=== PATIENT | female | born 1945 | race Caucasian/White ===

== ENCOUNTER 2018-03-29 12:16 | Inpatient (IN) | payer MEDICARE, OTHER ==
[2018-03-29] MEDS ORDERED: DILTIAZEM DRIP BOLUS FROM BAG 1 MG SOLN IV ONE (12:29)
[2018-03-29] MEDS ORDERED: IPRATROPIUM-ALBUTEROL 3 ML NEB INHALATION STA (12:29)
--- NOTE | 2018-03-29 12:30 | ED ---
Weakness HPI - General Stated complaint: SOB Time Seen by Provider: 03/29/18 12:18 Source: RN notes reviewed, old records reviewed, Caregiver Mode of arrival: EMS Limitations: altered mental status - History of Present Illness Initial comments: This is a 73-year-old female the ER for evasive significant shortness of breath weakness, not feeling well. Patient denies fevers denies chest pain. A she is a poor historian history. From EMS and patient's chart MD Complaint: generalized weakness -: days(s) Location: generalized Severity: moderate Severity scale (1-10): 7 Consistency: constant Improves with: rest, medication Worsens with: movement Associated Symptoms: syncope - Related Data Home Medications Medication Instructions Recorded Confirmed ALPRAZolam [Xanax] 0.25 mg PO BID@0800,1600 08/17/15 03/29/18 Clopidogrel [Plavix] 75 mg PO DAILY 08/17/15 03/29/18 Magnesium Hydroxide [Milk of 30 ml PO DAILY PRN 08/17/15 03/29/18 Magnesia] Menthol [Biofreeze] 1 applic TOPICAL DAILY PRN 08/17/15 03/29/18 Metoprolol Succinate (ER) [Toprol 100 mg PO DAILY 08/17/15 03/29/18 Xl] Carboxymethylcellulose Sodium 1 drop BOTH EYES TID@0800,1200,1800 03/29/1803/29 [Refresh Tears] Diltiazem HCl [Cardizem LA] 180 mg PO DAILY 03/29/18 03/29/18 HYDROcodone/APAP 10-325MG [[place] 1 tab PO Q4H 03/29/18 03/29/18 10-325] Insulin Aspart [NovoLOG] 35 unit SQ AC-TID 03/29/18 03/29/18 Insulin Aspart [NovoLOG] See Protocol SQ DIRECTED 03/29/18 03/29/18 Insulin Glargine,Hum.rec.anlog 50 unit SQ BID@0800,1600 03/29/18 03/29/18 [Basaglar Krzysztofikpen U-100] Ipratropium-Albuterol Nebulize 3 ml INHALATION RT-QID 03/29/18 03/29/18 [Duoneb 0.5 mg-3 mg/3 ml Soln] Ketoconazole [Ketoconazole 2%] 1 applic TOPICAL DAILY 03/29/18 03/29/18 Lidocaine [Lidocaine 3% Topical 1 applic TOPICAL DAILY 03/29/18 03/29/18 Cream] Melatonin 5 mg PO HS 03/29/18 03/29/18 Menthol [Biofreeze] 1 dose TOPICAL Q8HR PRN MDD BOTH 03/29/18 03/29/18 KNEES Nitroglycerin Sl Tabs [Nitrostat] 0.4 mg SL Q5M 03/29/18 03/29/18 QUEtiapine [SEROquel] 100 mg PO TID@0800,1200,2100 03/29/18 03/29/18 Sodium Bicarbonate 650 mg PO BID@0800,1600 03/29/18 03/29/18 cycloSPORINE 0.05% OPHTH SOLN 1 drop BOTH EYES BID 03/29/18 03/29/18 [Restasis] guaiFENesin SYRUP 100MG/5ML 5 ml PO Q6HR PRN 03/29/18 03/29/18 [Robitussin] metFORMIN HCL 1,000 mg PO BID@0800,1600 03/29/18 03/29/18 Allergies Allergy/AdvReac Type Severity Reaction Status Date / Time baclofen Allergy Unknown Verified 03/29/18 14:12 morphine Allergy Unknown Verified 03/29/18 14:12 Review of Systems ROS Statement: Those systems with pertinent positive or pertinent negative responses have been documented in the HPI. ROS Other: All systems not noted in ROS Statement are negative. Past Medical History Past Medical History: Diabetes Mellitus, Eye Disorder, Hyperlipidemia, Hypertension Additional Past Medical History / Comment(s): wheelchair dependent History of Any Multi-Drug Resistant Organisms: None Reported Past Surgical History: Unable to Obtain Past Anesthesia/Blood Transfusion Reactions: Unable to Obtain Smoking Status: Current every day smoker - Past Family History Mother Family Medical History: Unable to Obtain General Exam General appearance: alert, anxious, in distress Head exam: Present: atraumatic, normocephalic, normal inspection Eye exam: Present: normal appearance, PERRL, EOMI. Absent: scleral icterus, conjunctival injection, periorbital swelling ENT exam: Present: normal exam, mucous membranes moist Neck exam: Present: normal inspection. Absent: tenderness, meningismus, lymphadenopathy Respiratory exam: Present: respiratory distress, wheezes, rales, accessory muscle use, decreased breath sounds, prolonged expiratory. Absent: rhonchi, stridor Cardiovascular Exam: Present: tachycardia, irregular rhythm, normal heart sounds. Absent: systolic murmur, diastolic murmur, rubs, gallop, clicks GI/Abdominal exam: Present: soft, normal bowel sounds. Absent: distended, tenderness, guarding, rebound, rigid Extremities exam: Present: normal inspection, full ROM, normal capillary refill. Absent: tenderness, pedal edema, joint swelling, calf tenderness Back exam: Present: normal inspection Neurological exam: Present: alert, oriented X3, CN II-XII intact Psychiatric exam: Present: normal affect, normal mood Skin exam: Present: warm, dry, intact, normal color. Absent: rash Course Vital Signs 03/29/18 03/29/18 03/29/18 12:30 12:45 13:00 Temperature 97.7 F Pulse Rate 101 H 96 108 H Respiratory 22 20 19 Rate Blood Pressure 139/75 147/85 143/127 O2 Sat by Pulse 93 L 93 L Oximetry 03/29/18 03/29/18 03/29/18 13:08 13:15 13:26 Temperature Pulse Rate 113 H 107 H 114 H Respiratory 22 Rate Blood Pressure 142/75 O2 Sat by Pulse 96 Oximetry 03/29/18 03/29/18 03/29/18 13:30 13:36 13:45 Temperature Pulse Rate 101 H 100 103 H Respiratory 17 18 21 Rate Blood Pressure 141/78 136/75 136/75 O2 Sat by Pulse 95 92 L 93 L Oximetry 03/29/18 03/29/18 03/29/18 14:30 14:45 14:50 Temperature Pulse Rate 85 78 75 Respiratory 21 18 18 Rate Blood Pressure 145/76 149/96 151/81 O2 Sat by Pulse 94 L 93 L 95 Oximetry 03/29/18 03/29/18 03/29/18 15:00 15:15 15:30 Temperature 98.8 F Pulse Rate 85 90 88 Respiratory 27 H 19 Rate Blood Pressure 151/81 155/83 155/83 O2 Sat by Pulse 91 L 95 94 L Oximetry - Reevaluation(s) Reevaluation #1: Clinical record is reviewed Patient does have improvement after diuresis and prolonged breathing treatment EKG Findings - EKG Comments: EKG Findings:: EKG shows a flutter rate of 110, QRS 88, QTC 397 Medical Decision Making - Medical Decision Making 73 female the ER for evasive severe shortness of breath, patient will be admitted for hypoxia CHF and COPD - Lab Data Result diagrams: 03/30/18 05:50 03/30/18 05:50 Lab Results 03/29/18 03/29/18 03/29/18 Range/Units 13:14 13:14 13:14 WBC 6.9 (3.8-10.6) k/uL RBC 3.47 L (3.80-5.40) m/uL Hgb 10.0 L (11.4-16.0) gm/dL Hct 32.2 L (34.0-46.0) % MCV 92.7 (80.0-100.0) fL MCH 28.8 (25.0-35.0) pg MCHC 31.1 (31.0-37.0) g/dL RDW 15.8 H (11.5-15.5) % Plt Count 198 (150-450) k/uL Neutrophils % 72 % Lymphocytes % 15 % Monocytes % 5 % Eosinophils % 5 % Basophils % 1 % Neutrophils # 5.0 (1.3-7.7) k/uL Lymphocytes # 1.1 (1.0-4.8) k/uL Monocytes # 0.4 (0-1.0) k/uL Eosinophils # 0.4 (0-0.7) k/uL Basophils # 0.0 (0-0.2) k/uL Hypochromasia Slight PT (9.0-12.0) sec INR (<1.2) APTT (22.0-30.0) sec Sodium 143 (137-145) mmol/L Potassium 4.5 (3.5-5.1) mmol/L Chloride 115 H (98-107) mmol/L Carbon Dioxide 18 L (22-30) mmol/L Anion Gap 10 mmol/L BUN 58 H (7-17) mg/dL Creatinine 4.24 H (0.52-1.04) mg/dL Est GFR (CKD-EPI)AfAm 11 (>60 ml/min/1.73 sqM) Est GFR (CKD-EPI)NonAf 10 (>60 ml/min/1.73 sqM) Glucose 206 H (74-99) mg/dL Estimated Ave Glu mg/dL Hemoglobin A1c (4.0-6.0) % Calcium 9.9 (8.4-10.2) mg/dL Magnesium 1.7 (1.6-2.3) mg/dL Total Bilirubin 0.4 (0.2-1.3) mg/dL AST 21 (14-36) U/L ALT 26 (9-52) U/L Alkaline Phosphatase 75 (38-126) U/L Total Creatine Kinase 38 (30-135) U/L CK-MB (CK-2) 1.6 (0.0-2.4) ng/mL CK-MB (CK-2) Rel Index 4.2 Troponin I 0.073 H* (0.000-0.034) ng/mL NT-Pro-B Natriuret Pep pg/mL Total Protein 5.8 L (6.3-8.2) g/dL Albumin 3.0 L (3.5-5.0) g/dL 03/29/18 03/29/18 03/29/18 Range/Units 13:14 13:14 13:14 WBC (3.8-10.6) k/uL RBC (3.80-5.40) m/uL Hgb (11.4-16.0) gm/dL Hct (34.0-46.0) % MCV (80.0-100.0) fL MCH (25.0-35.0) pg MCHC (31.0-37.0) g/dL RDW (11.5-15.5) % Plt Count (150-450) k/uL Neutrophils % % Lymphocytes % % Monocytes % % Eosinophils % % Basophils % % Neutrophils # (1.3-7.7) k/uL Lymphocytes # (1.0-4.8) k/uL Monocytes # (0-1.0) k/uL Eosinophils # (0-0.7) k/uL Basophils # (0-0.2) k/uL Hypochromasia PT 11.3 (9.0-12.0) sec INR 1.2 H (<1.2) APTT 23.2 (22.0-30.0) sec Sodium (137-145) mmol/L Potassium (3.5-5.1) mmol/L Chloride (98-107) mmol/L Carbon Dioxide (22-30) mmol/L Anion Gap mmol/L BUN (7-17) mg/dL Creatinine (0.52-1.04) mg/dL Est GFR (CKD-EPI)AfAm (>60 ml/min/1.73 sqM) Est GFR (CKD-EPI)NonAf (>60 ml/min/1.73 sqM) Glucose (74-99) mg/dL Estimated Ave Glu mg/dL 117 Hemoglobin A1c 5.7 (4.0-6.0) % Calcium (8.4-10.2) mg/dL Magnesium (1.6-2.3) mg/dL Total Bilirubin (0.2-1.3) mg/dL AST (14-36) U/L ALT (9-52) U/L Alkaline Phosphatase (38-126) U/L Total Creatine Kinase (30-135) U/L CK-MB (CK-2) (0.0-2.4) ng/mL CK-MB (CK-2) Rel Index Troponin I (0.000-0.034) ng/mL NT-Pro-B Natriuret Pep 25285 pg/mL Total Protein (6.3-8.2) g/dL Albumin (3.5-5.0) g/dL - Radiology Data Radiology results: report reviewed (Chest x-ray positive for CHF), image reviewed Critical Care Time Critical Care Time: Yes Total Critical Care Time: 31 Disposition Clinical Impression: Acute pulmonary edema, Acute exacerbation of chronic obstructive airways disease, Congestive heart failure Disposition: ADMITTED IP TO THIS [facility] Condition: Serious Is patient prescribed a controlled substance at d/c from ED?: No
[2018-03-29] MEDS: DILTIAZEM 50 MG in SODIUM CHLORIDE 0.9% 40 ML IV SCH ×2 (13:24→22:24)
[2018-03-29 13:37] LABS: Basophils % (A) 1 %; Eosinophils # (A) 0.4 k/uL (0-0.7); Eosinophils % (A) 5 %; HCT 32.2 % (34.0-46.0); Hypochromasia Slight; Lymphocytes # (A) 1.1 k/uL (1.0-4.8); Lymphocytes % (A) 15 %; MCH 28.8 pg (25.0-35.0); MCHC 31.1 g/dL (31.0-37.0); MCV 92.7 fL (80.0-100.0); Mean Platelet Volume 8.5; Monocytes # (A) 0.4 k/uL (0-1.0); Monocytes % (A) 5 %; Neutrophils % (A) 72 %; Platelet Count 198 k/uL (150-450); RBC 3.47 m/uL (3.80-5.40); RDW 15.8 % (11.5-15.5); WBC 6.9 k/uL (3.8-10.6)
[2018-03-29 13:48] LABS: INR 1.2 (<1.2); Partial Thromboplastin Time 23.2 sec (22.0-30.0); Prothrombin Time 11.3 sec (9.0-12.0)
[2018-03-29 13:49] LABS: Calcium 9.9 mg/dL (8.4-10.2); Magnesium 1.7 mg/dL (1.6-2.3); Potassium 4.5 mmol/L (3.5-5.1); Total Bilirubin 0.4 mg/dL (0.2-1.3); Total Protein 5.8 g/dL (6.3-8.2)
[2018-03-29 14:10] LABS: Creatine Kinase MB 1.6 ng/mL (0.0-2.4)
[2018-03-29 14:12] LABS: Troponin I 0.073 ng/mL (0.000-0.034)
--- NOTE | 2018-03-29 14:19 | XR ---
EXAMINATION TYPE: XR chest 2V DATE OF EXAM: 03/29/2018 COMPARISON: None INDICATION: Difficulty breathing TECHNIQUE: Frontal and lateral views of the chest are obtained. FINDINGS: The heart size is enlarged. The pulmonary vasculature is prominent. Bibasilar infiltrates are present. Small posterior pleural effusion likely on the left is present.. IMPRESSION: 1. Small left pleural effusion. 2. Cardiomegaly 3. Bibasilar infiltrates. Correlate for pulmonary edema. 4. Clinical correlation recommended for congestive heart failure.
[2018-03-29] MEDS ORDERED: FUROSEMIDE 10 MG/ML 4 ML VIAL IV STA (14:27)
[2018-03-29] MEDS ORDERED: methylPREDNISolone SOD SUCCI 125 MG/2 ML VIAL IV STA (14:54)
[2018-03-29] MEDS ORDERED: IPRATROPIUM-ALBUTEROL 3 ML NEB INHALATION SCH (16:00)
[2018-03-29] MEDS ORDERED: guaiFENesin SYRUP 100MG/5ML 200 MG/10 ML CUP PO PRN (16:56)
[2018-03-29] MEDS ORDERED: MAGNESIUM HYDROXIDE 2,400 MG/10 ML CUP PO PRN (16:56)
[2018-03-29 17:00] LABS: Glucose,Whole Blood 259 mg/dL (75-99)
[2018-03-29] MEDS: methylPREDNISolone SOD SUCCI 125 MG/2 ML VIAL IV SCH ×2 (17:18→22:24)
[2018-03-29] MEDS: INSULIN ASPART 100 UNIT/ML 1 ML 10 ML VIAL SQ SCH ×3 (17:18→19:51)
[2018-03-29] MEDS: MELATONIN 5 MG TABLET PO SCH (19:59)
[2018-03-29] MEDS: cycloSPORINE 0.05% OPHTH 0.4 ML DROPERETTE BOTH EYES SCH (19:59)
[2018-03-29] MEDS: QUEtiapine 100 MG TAB PO SCH (19:59)
[2018-03-29 20:02] LABS: Glucose,Whole Blood 124 mg/dL (75-99)
[2018-03-29] MEDS: IPRATROPIUM-ALBUTEROL 3 ML NEB INHALATION SCH (20:21)
[2018-03-30] MEDS: methylPREDNISolone SOD SUCCI 125 MG/2 ML VIAL IV SCH ×3 (06:03→16:55)
[2018-03-30 06:05] LABS: Glucose,Whole Blood 195 mg/dL (75-99)
[2018-03-30] MEDS: INSULIN ASPART 100 UNIT/ML 1 ML 10 ML VIAL SQ SCH ×7 (06:10→22:03)
[2018-03-30 06:16] LABS: HCT 32.3 % (34.0-46.0); HGB 10.4 gm/dL (11.4-16.0); Hypochromasia Slight; MCH 29.7 pg (25.0-35.0); MCHC 32.2 g/dL (31.0-37.0); MCV 92.4 fL (80.0-100.0); Mean Platelet Volume 9.5; Platelet Count 204 k/uL (150-450); RDW 15.7 % (11.5-15.5); WBC 4.8 k/uL (3.8-10.6)
[2018-03-30 06:44] LABS: Calcium 10.1 mg/dL (8.4-10.2); Magnesium 1.8 mg/dL (1.6-2.3); Potassium 5.1 mmol/L (3.5-5.1); Total Bilirubin 0.4 mg/dL (0.2-1.3); Total Protein 5.9 g/dL (6.3-8.2)
[2018-03-30] MEDS: IPRATROPIUM-ALBUTEROL 3 ML NEB INHALATION SCH ×4 (08:24→21:25)
[2018-03-30] MEDS ORDERED: METOPROLOL SUCCINATE (ER) 100 MG TAB.ER.24H PO SCH (09:00)
[2018-03-30] MEDS: ACETAMINOPHEN TAB 325 MG TAB PO PRN (09:12)
[2018-03-30] MEDS ORDERED: FUROSEMIDE 10 MG/ML 10 ML VIAL IV STA (09:18)
[2018-03-30] MEDS: SODIUM BICARBONATE TAB 650 MG TAB PO SCH ×2 (09:22→16:55)
[2018-03-30] MEDS: cycloSPORINE 0.05% OPHTH 0.4 ML DROPERETTE BOTH EYES SCH ×2 (09:23→22:04)
[2018-03-30] MEDS: CLOPIDOGREL 75 MG TAB PO SCH (09:23)
[2018-03-30] MEDS: QUEtiapine 100 MG TAB PO SCH ×3 (09:23→22:02)
[2018-03-30] MEDS: DILTIAZEM CD 180 MG CAP.ER.24H PO SCH (09:24)
[2018-03-30] MEDS: INSULIN DETEMIR 100 UNIT/ML 10 ML VIAL SQ SCH ×2 (09:25→16:58)
[2018-03-30 11:42] LABS: Glucose,Whole Blood 175 mg/dL (75-99)
[2018-03-30] MEDS: DILTIAZEM 50 MG in SODIUM CHLORIDE 0.9% 40 ML IV SCH ×3 (12:22→23:27)
--- NOTE | 2018-03-30 13:18 | HP ---
HISTORY AND PHYSICAL CHIEF COMPLAINT: Shortness of breath. HISTORY OF PRESENT ILLNESS: This is the first admission of this 73-year-old white female. She had been at [facility], but it is not clear where she right resides now. She apparently was treated at [facility], decided to be a NO CODE, and then was transferred back to [facility]. As she continued to have some difficulty breathing and then stated that she wanted to be a FULL CODE and have everything done and she was sent here. History is not reliably obtained. Review of systems, past medical history, family history and personal and social histories are essentially unknown. PHYSICAL EXAMINATION: Blood pressure is 151/86 with a pulse of 97, respirations of 43, and she is afebrile. In general, she appeared to be dyspneic and overweight. She appeared to be chronically ill. Head, ears, eyes, nose, mouth, and throat seem normal. Neck veins were not distended. Chest demonstrated rhonchi and rales and poor breath sounds throughout. Cardiac exam demonstrated tachycardia and it was difficult to tell if there is any arrhythmia or murmur. The abdomen is slightly protuberant, soft, nontender. Extremities normal. Neurologically, she is difficult to evaluate. It is not clear whether she has dementia or not. IMPRESSION: 1. Exacerbation of chronic obstructive pulmonary disease. 2. Congestive heart failure. 3. ? dementia. PLAN: 1. Bed rest. 2. IV fluids. 3. Workup and treat for COPD and CHF. MMODL / IJN: [id number] /
[2018-03-30 15:26] LABS: Hemoglobin A1C 5.7 % (4.0-6.0)
[2018-03-30 16:46] LABS: Glucose,Whole Blood 167 mg/dL (75-99)
[2018-03-30] MEDS: CARVEDILOL 6.25 MG TAB PO SCH (17:43)
[2018-03-30] MEDS ORDERED: ARTIFICIAL TEARS-HYPROMELLOSE DROPS 15 ML BTL BOTH EYES SCH (18:00)
[2018-03-30] MEDS: ARTIFICIAL TEARS OINTMENT 3.5 GM TUBE BOTH EYES SCH (18:10)
--- NOTE | 2018-03-30 18:11 | US ---
EXAMINATION TYPE: US kidneys/renal and bladder DATE OF EXAM: 03/30/2018 COMPARISON: NONE CLINICAL HISTORY: CKD. Difficult and limited exam, patient is a poor historian, cannot roll onto her side or take a deep breath in and hold it. EXAM MEASUREMENTS: Right Kidney: Not visualized on this exam with certainty Left Kidney: 12.7 x 5.7 x 5.4 cm Right Kidney: Not visualized on this exam with certainty- patient states she had some kind of renal s urgery but cannot remember what. Unsure if kidney is not visualized due to atrophic state or possible surgical absence as there is no previous medical imaging at this facility. Left Kidney: Hypoechoic area visualized upper pole measuring 1.9 x 1.7 x 1.4 cm Bladder: Patient has catheter Bilateral Jets seen: No IMPRESSION: Left kidney shows a 1.5 cm cortical cyst. No evidence of obstruction or solid mass. Right kidney is n ot identified.
[2018-03-30 21:27] LABS: Glucose,Whole Blood 202 mg/dL (75-99)
[2018-03-30] MEDS: MELATONIN 5 MG TABLET PO SCH (22:02)
[2018-03-30] MEDS: FUROSEMIDE 10 MG/ML 10 ML VIAL IV SCH (22:02)
[2018-03-31 05:51] LABS: Glucose,Whole Blood 196 mg/dL (75-99)
[2018-03-31] MEDS: CARVEDILOL 6.25 MG TAB PO SCH (07:12)
[2018-03-31] MEDS: INSULIN ASPART 100 UNIT/ML 1 ML 10 ML VIAL SQ SCH ×7 (07:15→20:16)
[2018-03-31] MEDS: IPRATROPIUM-ALBUTEROL 3 ML NEB INHALATION SCH ×4 (08:00→18:56)
[2018-03-31] MEDS: DILTIAZEM CD 180 MG CAP.ER.24H PO SCH (08:23)
[2018-03-31] MEDS: CLOPIDOGREL 75 MG TAB PO SCH (08:23)
[2018-03-31] MEDS: FUROSEMIDE 10 MG/ML 10 ML VIAL IV SCH ×2 (08:24→20:20)
[2018-03-31] MEDS: SODIUM BICARBONATE TAB 650 MG TAB PO SCH ×2 (08:25→15:40)
[2018-03-31] MEDS: INSULIN DETEMIR 100 UNIT/ML 10 ML VIAL SQ SCH ×2 (08:26→17:35)
[2018-03-31] MEDS: ARTIFICIAL TEARS OINTMENT 3.5 GM TUBE BOTH EYES SCH ×3 (08:26→15:27)
[2018-03-31] MEDS: cycloSPORINE 0.05% OPHTH 0.4 ML DROPERETTE BOTH EYES SCH ×2 (08:27→21:21)
[2018-03-31] MEDS: QUEtiapine 100 MG TAB PO SCH ×3 (08:27→21:21)
[2018-03-31] MEDS: DILTIAZEM 50 MG in SODIUM CHLORIDE 0.9% 40 ML IV SCH (08:31)
[2018-03-31] MEDS ORDERED: LISINOPRIL 20 MG TAB PO SCH (09:00)
[2018-03-31] MEDS ORDERED: ASPIRIN 81 MG PO SCH (09:00)
[2018-03-31] MEDS ORDERED: SPIRONOLACTONE 25 MG TAB PO SCH (09:00)
--- NOTE | 2018-03-31 09:07 | ECHOF ---
Referral Reason:Echocardiogram for CHF MEASUREMENTS -------- HEIGHT: 167.6 cm WEIGHT: 128.8 kg BP: 156/73 RVIDd: 3.2 cm (< 3.3) IVSd: 1.3 cm (0.6 - 1.1) LVIDd: 4.2 cm (3.9 - 5.3) LVPWd: 1.3 cm (0.6 - 1.1) IVSs: 1.4 cm LVIDs: 3.1 cm LVPWs: 1.5 cm LAESV Index (A-L): 32.75 ml/m Ao Diam: 2.6 cm (2.0 - 3.7) AV Cusp: 1.7 cm (1.5 - 2.6) LA Diam: 3.6 cm (2.7 - 3.8) MV EXCURSION: 15.944 mm (> 18.000) MV EF SLOPE: 166 mm/s (70 - 150) EPSS: 1.1 cm MV E Cristian: 1.40 m/s MV DecT: 168 ms MV A Cristian: 0.81 m/s MV E/A Ratio: 1.72 RAP: 5.00 mmHg RVSP: 43.85 mmHg FINDINGS -------- The rhythm appears to be atrial flutter. This was a technically adequate study. The left ventricular size is normal. There is mild concentric left ventricular hypertrophy. Overa ll left ventricular systolic function is low-normal with, an EF between 50 - 55 %. The right ventricle is normal in size and function. LA is midly dilated 29-33ml/m2. RA appears enlarged. Aortic valve is trileaflet and is mildly thickened. There is no evidence of aortic regurgitation. There is no evidence of aortic stenosis. The mitral valve leaflets are mildly thickened. There is trace to mild mitral regurgitation. Mild tricuspid regurgitation present. There is mild pulmonary hypertension. The right ventricular systolic pressure, as measured by Doppler, is 43.85mmHg. Trace/mild (physiologic) pulmonic regurgitation. The aortic root size is normal. IVC Not well visulized. There is no pericardial effusion. CONCLUSIONS -------- 1. The rhythm appears to be atrial flutter. 2. This was a technically adequate study. 3. The left ventricular size is normal. 4. There is mild concentric left ventricular hypertrophy. 5. Overall left ventricular systolic function is low-normal with, an EF between 50 - 55 %. 6. LA is midly dilated 29-33ml/m2. 7. RA appears enlarged. 8. Aortic valve is trileaflet and is mildly thickened. 9. The mitral valve leaflets are mildly thickened. 10. There is trace to mild mitral regurgitation. 11. Mild tricuspid regurgitation present. 12. There is mild pulmonary hypertension. 13. The right ventricular systolic pressure, as measured by Doppler, is 43.85mmHg. 14. Trace/mild (physiologic) pulmonic regurgitation. 15. The aortic root size is normal. 16. IVC Not well visulized. 17. There is no pericardial effusion. CLAIMS ADJUSTOR: Romaine Adkins RDCS
--- NOTE | 2018-03-31 11:07 | CONS ---
CONSULTATION Mrs. Beaulieu is 73-year-old female who was admitted with symptoms of progressive dyspnea. She has a known history of chronic persistent atrial fibrillation, history of chronic kidney disease. Apparently was at [facility] and at that time elected not to undergo any further workup and decided to be NO CODE. Subsequently, changed her mind was readmitted to the hospital with symptoms of dyspnea. According to her, she had recent pneumonia. She said that she was on Coumadin before, but she cannot recall that she had atrial fibrillation. She denies any chest pain. She denies any dizziness, palpitation. She has some peripheral edema. No PND, no orthopnea. She is not very active physically. MEDICATIONS: Her medications at the time of admission included metformin, sodium bicarb, metoprolol succinate 100 mg daily, insulin, diltiazem CD 180 mg daily, Plavix 75 mg daily. REVIEW OF SYSTEMS: RESPIRATORY SYSTEM: She had recent pneumonia. She has dyspnea and cough. She denies fever. GI SYSTEM: She denies any GI bleeding. No peptic ulcer disease. SYSTEM: She denies any dysuria or hematuria, but she has advanced chronic kidney disease. NERVOUS SYSTEM: She denies any history of stroke or seizure. PHYSICAL EXAMINATION: She is a 73-year-old female, appears older than stated age. Alert, in no apparent distress. Blood pressure 142/70 with a heart rate in the low 100, on IV Cardizem. HEAD: Normocephalic. EYES: Sclerae nonicteric. NECK: Good upstroke, no bruit. Lungs with crackles at both bases. HEART: Irregular, regular. S1, S2. No S3 with systolic murmur, no diastolic murmur, no rub. ABDOMEN: Soft, nontender. No organomegaly. EXTREMITIES: Chronic skin changes with 1+ edema. LAB DATA: Revealed a hemoglobin of 10. INR 1.2. BUN and creatinine 58 and 4.24. Troponin 0.073, 0.085, 0.096. NT proBNP of 30,500. EKG revealed atrial fibrillation with nonspecific ST-T wave changes. Rate of 110. Chest x-ray revealed bibasilar infiltrate. IMPRESSION: 1. Symptoms of progressive dyspnea with possible fluid overload, the elevation of NT proBNP could be affected by her renal function. 2. Atrial fibrillation chronic with rapid ventricular response. 3. Chronic kidney disease, advanced. RECOMMENDATION: Patient had an echocardiogram that revealed a preserved ventricular size and systolic function, ejection fraction of 50% to 55% with mild mitral and tricuspid regurgitation and mild pulmonary hypertension. I would recommend to resume her old dose of beta chilango instead of Coreg, it may be better controlling ventricular response and I will stop her Aldactone because of the renal function. Patient will be evaluated by the Nephrology service. I will hold her CARINE inhibitor at this time. The patient's Plavix and aspirin will be stopped and I will consider adding to her regimen Eliquis instead of that because of her atrial fibrillation. Depending on her progress, further recommendation will be made. MMODL / IJN: [id number] /
[2018-03-31 11:31] LABS: Basophils % (A) 0 %; Eosinophils # (A) 0.1 k/uL (0-0.7); Eosinophils % (A) 1 %; HCT 33.9 % (34.0-46.0); HGB 10.7 gm/dL (11.4-16.0); Hypochromasia Slight; Lymphocytes # (A) 0.6 k/uL (1.0-4.8); Lymphocytes % (A) 7 %; MCH 29.3 pg (25.0-35.0); MCHC 31.6 g/dL (31.0-37.0); MCV 92.6 fL (80.0-100.0); Mean Platelet Volume 8.7; Monocytes # (A) 0.2 k/uL (0-1.0); Monocytes % (A) 3 %; Neutrophils # (A) 7.5 k/uL (1.3-7.7); Neutrophils % (A) 89 %; Platelet Count 259 k/uL (150-450); RBC 3.65 m/uL (3.80-5.40); RDW 15.9 % (11.5-15.5); WBC 8.4 k/uL (3.8-10.6)
[2018-03-31 11:39] LABS: Albumin 3.3 g/dL (3.5-5.0); Calcium 10.4 mg/dL (8.4-10.2); Potassium 4.3 mmol/L (3.5-5.1); Total Bilirubin 0.4 mg/dL (0.2-1.3); Total Protein 6.4 g/dL (6.3-8.2)
[2018-03-31] MEDS: METOPROLOL SUCCINATE (ER) 50 MG TAB.ER.24H PO SCH ×2 (11:40→20:21)
[2018-03-31 11:50] LABS: Glucose,Whole Blood 130 mg/dL (75-99)
--- NOTE | 2018-03-31 13:35 | CDI ---
Last Revision, April 2017 Documentation Clarification Form Date: 03/31/2018 1:25:30 PM From: Nicolette GaleDoddREED, CCDS Admit Date: 03/29/2018 2:55:00 PM Patient Name: Ellen Beaulieu Visit Number: [id number] Discharge Date: ATTENTION: The Clinical Documentation Specialists (CDI) and [facility] Coding Staff appreciate your assistance in clarifying documentation. Please respond to the clarification below the line at the bottom and electronically sign. The CDI & [facility] Coding staff will review the response and follow-up if needed. Please note: Queries are made part of the Legal Health Record. If you have any questions, please contact the author of this message via ITS. Aryan Martin MD: Patient presented from prison with weakness, SOB & altered mental status. History/Risk Factors: Chronic persistent atrial fibrillation, CKD nos, Diabetes Mellitus, Hyperlipidemia, Hypertension, Smoker and Wheelchair dependent. Clinical Indicators: SOB, from prison, possible recent pneumonia, current smoker. VSS: P 113^, R 20-22, BP 131/80-147/85, PO 91 2Lnc BNP: 32,700 RAD: Small left pleural effusion, Cardiomegaly, Bibasilar infiltrates, correlate for pulmonary edema, Correlate for CHF Echocardiogram Results: EF 50-55% systolic low normal, Trace-mild mitral regurgitation, Mild tricuspid regurgitation, mild pulmonary hypertension. Treatment: Albuterol INH, IV Cardizem, IV Lasix, IV Solumedrol, O2 2-3Lnc In your professional opinion, can you please clarify the acuity and type of CHF if known? Systolic Heart Failure: o Acute o Chronic o Acute on Chronic Diastolic Heart Failure: o Acute o Chronic X o Acute on Chronic Systolic & Diastolic Heart Failure: o Acute o Chronic o Acute on Chronic Heart Failure Unable to Determine Other, please specify MTDD
[2018-03-31 14:02] LABS: T4, Free (Free Thyroxine) 0.98 ng/dL (0.78-2.19)
--- NOTE | 2018-03-31 14:44 | XR ---
EXAMINATION TYPE: XR chest 2V DATE OF EXAM: 03/31/2018 COMPARISON: Prior chest x-ray 03/29/2018 HISTORY: Congestive heart failure, chronic kidney disease TECHNIQUE: Frontal and lateral views of the chest are obtained. FINDINGS: There is blunting the posterior costophrenic angles, bibasilar increased density. No evide nt pneumothorax. Patient is rotated. Aorta is dense. Heart size is stable. There is some improvement in the interstitium compared to prior exam. Surgical clips present in the left axilla. IMPRESSION: Suspect some improvement in patient's volume status, aeration within the lungs. Basilar effusions.
[2018-03-31 17:12] LABS: Glucose,Whole Blood 177 mg/dL (75-99)
--- NOTE | 2018-03-31 18:54 | PN ---
PROGRESS NOTE DATE OF SERVICE: 03/31/2018 CHIEF COMPLAINT: Congestive heart failure, COPD and renal failure. HISTORY OF PRESENT ILLNESS: This lady is slightly improved. She seems to be breathing a little bit more easily. REVIEW OF SYSTEMS: She has no complaints. She states she feels better. She is still confused. PHYSICAL EXAM: Chest is much more clear. There are fewer rales and rhonchi. The cardiac exam is unchanged. Abdomen is soft and nontender. Extremities are normal. IMPRESSION: 1. Exacerbation of chronic obstructive pulmonary disease. 2. Exacerbation of congestive heart failure. 3. Renal failure. 4. Dementia. PLAN: 1. Continue on current program. 2. Repeat chest x-ray and electrolytes. MMODL / IJN: [id number] /
[2018-03-31 20:19] LABS: Glucose,Whole Blood 143 mg/dL (75-99)
[2018-03-31] MEDS: MELATONIN 5 MG TABLET PO SCH (20:20)
[2018-03-31] MEDS: APIXABAN 2.5 MG TABLET PO SCH (20:21)
[2018-03-31 20:38] LABS: Phosphorus 5.1 mg/dL (2.5-4.5)
--- NOTE | 2018-03-31 22:45 | CONS ---
CONSULTATION REASON FOR CONSULT: Renal failure. HISTORY OF PRESENT ILLNESS: Patient is a 73-year-old female who has chronic kidney disease and was admitted to the hospital with increasing shortness of breath. The patient initially went to [facility]. She was noted to have a serum creatinine of 5 mg/dL and a creatinine of 4.5 mg/dL. Initially patient was going to proceed with NO-CODE STATUS and apparently she had changed her mind and came into [facility]. At this time, I am not able to get detailed history from the patient. Most of it is from chart review and on discussion with other physicians. I do not have any previous labs available for comparison over the last 6 months to a year, however, it appears that in 2010, patient was admitted to [place] and at that time serum creatinine had gone up to around 2.7 mg/dL. Previous creatinine had been 1.5 mg/dL in 2008 and 2009. We do not have any labs available after 2010. The patient does not follow with us as outpatient. Currently, patient is maintained on IV Lasix at 80 mg q.12 hours. She has had good urine output. Blood pressure is not low and her serum creatinine was initially 4.2 and is gone up to 5.0 mg/dL. There has been a question regarding starting renal replacement therapy. However, I would like to obtain labs over the last month or 2 to assess patient's baseline renal function. PAST MEDICAL HISTORY: Past medical history significant for CKD. Previous creatinine 1.5-1.6 in 2008, 2009 and 2.7 in 2010, hypertension, history of chronic atrial fibrillation, type 2 diabetes, obesity. PAST SURGICAL HISTORY: Not available. SOCIAL HISTORY: Positive for smoking. No history of drug abuse or alcohol abuse. MEDICATIONS: Prior to admission included: 1. Xanax. 2. Toprol. 3. Cardizem. 4. Insulin. 5. Metformin. 6. Seroquel. 7. Insulin. ALLERGIES: INCLUDE BACLOFEN AND MORPHINE. REVIEW OF SYSTEMS: Cannot be obtained. On examination patient is comfortable. She is not in any acute distress. She is not answering any questions currently. However, patient had been able to give a detailed history earlier in the day. PHYSICAL EXAMINATION: Blood pressure was 152/98, heart rate 91 per minute. She is afebrile. Examination of the heart S1, S2. Examination of lungs bilateral breath sounds are heard. Decreased breath sounds at bases. Abdomen is soft, obese, nontender. Examination lower extremity shows chronic skin changes. Edema 1+ bilaterally. CONTROL AREA OPERATOR exam cannot be performed in detail. LAB: Show sodium 146, potassium 4.3, chloride 115, CO2 is 19, BUN 77, serum creatinine 5.02 mg/dL. Hemoglobin 10.7 g/[place] [address]. UA is not available. ASSESSMENT: 1. Chronic kidney disease with unknown baseline with a serum creatinine staying about 4-5 mg/dL. Serum creatinine was at 5 mg/dL at [facility] recently. We have another creatinine of 2.7 from 2010, but we do not have any other labs available for comparison. At this time, patient is nonoliguric. If her renal function continues to worsen, she will need to start dialysis. At the same time, I will try and obtain previous labs from 1-2 months ago. I will check a urinalysis and obtain an ultrasound of the kidneys and this was done yesterday and it shows left kidney 12.7 cm. Patient has an atrophic right kidney. 2. A solitary kidney, mainly the left kidney. 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 3. Diastolic heart failure. Ejection fraction 50%-55%. PLAN: Decrease Lasix and will try to obtain previous labs. Check urinalysis. I will talk to the family regarding renal replacement therapy. Thank you for this consultation. We will continue to follow the patient with you during her hospitalization. MMODL / IJN: [id number] /
[2018-04-01 04:22] LABS: Appearance,Urine Clear (Clear); Bacteria,Urine Rare /hpf; Bilirubin,Urine Negative (Negative); Blood,Urine Trace (Negative); Color,Urine Colorless; Glucose,Urine (UA) Negative (Negative); Ketones,Urine Negative (Negative); Leukocyte Esterase,Urine Large (Negative); Mucus,Urine Rare /hpf; Nitrite,Urine Negative (Negative); Protein,Urine 1+ (Negative); RBC,Urine 5 /hpf (0-5); Specific Gravity,Urine 1.008 (1.001-1.035); Squamous Epithelial Cell,Urine 1 /hpf (0-4); Urobilinogen,Urine <2.0 mg/dL (<2.0); WBC,Urine 50 /hpf (0-5)
[2018-04-01 06:09] LABS: Glucose,Whole Blood 88 mg/dL (75-99)
[2018-04-01] MEDS: INSULIN ASPART 100 UNIT/ML 1 ML 10 ML VIAL SQ SCH ×7 (06:17→21:23)
[2018-04-01 06:46] LABS: Calcium 10.1 mg/dL (8.4-10.2); Potassium 3.6 mmol/L (3.5-5.1)
[2018-04-01] MEDS: IPRATROPIUM-ALBUTEROL 3 ML NEB INHALATION SCH ×4 (08:40→20:36)
[2018-04-01] MEDS: FUROSEMIDE 10 MG/ML 10 ML VIAL IV SCH ×2 (09:06→21:36)
[2018-04-01] MEDS: SODIUM BICARBONATE TAB 650 MG TAB PO SCH ×2 (09:06→17:04)
[2018-04-01] MEDS: DILTIAZEM CD 180 MG CAP.ER.24H PO SCH (09:07)
[2018-04-01] MEDS: cycloSPORINE 0.05% OPHTH 0.4 ML DROPERETTE BOTH EYES SCH ×2 (09:07→21:36)
[2018-04-01] MEDS: APIXABAN 2.5 MG TABLET PO SCH ×2 (09:07→21:36)
[2018-04-01] MEDS: METOPROLOL SUCCINATE (ER) 50 MG TAB.ER.24H PO SCH ×2 (09:07→21:35)
[2018-04-01] MEDS: QUEtiapine 100 MG TAB PO SCH ×3 (09:08→21:35)
[2018-04-01] MEDS: INSULIN DETEMIR 100 UNIT/ML 10 ML VIAL SQ SCH ×2 (09:21→16:54)
[2018-04-01 12:08] LABS: Glucose,Whole Blood 115 mg/dL (75-99)
--- NOTE | 2018-04-01 12:30 | P.PN ---
Subjective Progress Note Date: 04/01/18 This is a pleasant 73-year-old female was admitted with symptoms of progressive dyspnea. She has a known history of chronic persistent atrial fibrillation, chronic kidney disease. Apparently was at [facility] and at the time often not to undergo any further workup and decided to be no code. Subsequently she changed her mind and was readmitted to the hospital symptoms of dyspnea. She was apparently previously on Coumadin before but cannot recall that she had atrial fibrillation. Echocardiogram with Doppler showed low normal systolic function with an ejection fraction of 50-55% with no significant valvular abnormalities. X-ray done yesterday impression: suspect some improvement in patient's volume status, aeration within the lungs. Basilar effusions. Laboratory values today show potassium of 3.6, BUN of 88 and creatinine of 4.7. She is being followed by nephrology. She is been started on Eliquis 2.5 mg BID. She is currently on metoprolol succinate 50 mg by mouth twice a day. Objective - Vital Signs Vital signs: Vital Signs Temp 98.1 F 04/01/18 04:45 Pulse 117 H 04/01/18 08:00 Resp 16 04/01/18 11:26 BP 144/66 04/01/18 08:00 Pulse Ox 91 L 04/01/18 08:00 Intake & Output 03/31/18 04/01/18 04/01/18 18:59 06:59 18:59 Intake Total 405.333 120 Output Total 1850 3195 Balance -1444.667 -3195 120 Weight 120.519 kg Intake: Intake, IV Titration 45.333 Amount Diltiazem 50 mg In Sodium 45.333 Chloride 0.9% 40 ml @ 5 MG/HR 5 mls/hr IV .[facility] Rx#:[id number] Oral 360 120 Output: Urine 1850 3195 Uretheral (Alas) 1500 Other: Voiding Method Indwelling Catheter Indwelling Catheter Indwelling Catheter # Voids 1 - Exam PHYSICAL EXAMINATION: HEENT: Head is atraumatic, normocephalic. Pupils equal, round. Neck is supple. There is no elevated jugular venous pressure. HEART EXAMINATION: Heart sounds irregularly irregular, S1 and S2 with systolic murmur. CHEST EXAMINATION: Lungs reveal bibasilar crackles. No chest wall tenderness is noted on palpation or with deep breathing. ABDOMEN: Soft, obese, nontender. Bowel sounds are heard. No organomegaly noted. EXTREMITIES: Chronic skin changes with evidence of 1+ peripheral edema and no calf tenderness noted. NEUROLOGIC patient is awake, alert and oriented x3. . - Labs CBC & Chem 7: 03/31/18 05:40 04/01/18 05:49 Labs: Abnormal Lab Results - Last 24 Hours (Table) 03/31/18 03/31/18 03/31/18 Range/Units 05:40 16:50 20:07 Chloride (98-107) mmol/L BUN (7-17) mg/dL Creatinine (0.52-1.04) mg/dL POC Glucose (mg/dL) 177 H 143 H (75-99) mg/dL Phosphorus 5.1 H (2.5-4.5) mg/dL Urine Protein (Negative) Urine Blood (Negative) Ur Leukocyte Esterase (Negative) Urine WBC (0-5) /hpf Urine Bacteria (None) /hpf Urine Mucus (None) /hpf 04/01/18 04/01/18 04/01/18 Range/Units 04:00 05:49 12:05 Chloride 109 H (98-107) mmol/L BUN 88 H (7-17) mg/dL Creatinine 4.70 H (0.52-1.04) mg/dL POC Glucose (mg/dL) 115 H (75-99) mg/dL Phosphorus (2.5-4.5) mg/dL Urine Protein 1+ H (Negative) Urine Blood Trace H (Negative) Ur Leukocyte Esterase Large H (Negative) Urine WBC 50 H (0-5) /hpf Urine Bacteria Rare H (None) /hpf Urine Mucus Rare H (None) /hpf Assessment and Plan Assessment: #1 acute on chronic diastolic congestive heart failure #2 chronic kidney disease #3 atrial fibrillation, chronic with RVR, heart rate better controlled today Plan: From cardiology perspective, medications were reviewed and will continue the same. Diuretics per nephrology. Continue to follow the patient and provide further recommendations accordingly. MATH AND PHYSICS INSTRUCTOR note has been reviewed, I agree with a documented findings and plan of care. Patient was seen and examined.
[2018-04-01] MEDS: ARTIFICIAL TEARS OINTMENT 3.5 GM TUBE BOTH EYES SCH ×3 (12:44→17:00)
--- NOTE | 2018-04-01 15:09 | PN ---
PROGRESS NOTE Patient is seen for followup for chronic kidney disease and acute kidney injury. I have spoken to who has been seeing her at [facility] for some time now. He states her baseline creatinine is around 2.5-3 mg/dL. Patient was recently admitted with a creatinine of around 6. At that time, she was hydrated and her serum creatinine had decreased to about 4-4.5 mg/dL. Initially, patient did want to proceed with hospice care, but since her renal function has improved with IV hydration, she has decided to proceed with further aggressive care. This morning, I have been able to carry on a conversation with her and patient states that she is still not too keen on renal replacement therapy. She denies any chest pains or shortness of breath and patient has had good urine output about 5 L over 24 hours. She was maintained on Lasix 80 mg q.12 hours, which was decreased to 60 mg IV q.12 hours last night. Serum creatinine has also improved slightly from 5.0-4.7 mg/dL. PHYSICAL EXAMINATION: This morning, patient is awake comfortable, alert and oriented x3. Blood pressure is 148/65, heart rate 86 per minute. She is afebrile. Examination of the heart, S1, S2. Examination of the lungs, bilateral breath sounds are heard. Abdomen is soft, nontender. Examination of the lower extremities shows trace edema bilaterally. ARMORED CAR GUARD AND DRIVER exam is grossly intact. LABS: Show sodium 144, potassium 3.6, chloride 109, BUN 88, creatinine 4.7. UA shows protein 1+, leukocyte esterase large and WBC is 50. ASSESSMENT: 1. Acute kidney injury, mainly cardiorenal, currently slightly improved. I will continue with Lasix. However, I will decrease the dose of about 60 mg q.12 hours. As I have informed the patient at this time she does not need to start dialysis, she is also quite reluctant to start renal replacement therapy. I have advised her that down the road if her renal function worsens, she will have to again decide between hospice and aggressive medical care including dialysis. 2. Chronic kidney disease NKF stage IV-V with baseline creatinine close to 3 mg/dL. Patient has not seen a tension machine operator previously. Etiology is likely nephrosclerosis and diabetic nephropathy. 3. Metabolic acidosis. Patient is maintained on oral sodium bicarb. 4. Chronic atrial fibrillation with controlled ventricular response. 5. Acute on top of chronic diastolic heart failure, currently improved. PLAN: Continue with current dose of IV Lasix. The patient will need followup as outpatient. Check urine cultures and check iron studies for workup of anemia. MMODL / IJN: [id number] /
[2018-04-01 16:45] LABS: Glucose,Whole Blood 115 mg/dL (75-99)
[2018-04-01 18:46] LABS: Iron Saturation 25.71 (12.00-45.00)
[2018-04-01 21:14] LABS: Glucose,Whole Blood 140 mg/dL (75-99)
[2018-04-01] MEDS: MELATONIN 5 MG TABLET PO SCH (21:35)
[2018-04-02 05:43] LABS: Glucose,Whole Blood 95 mg/dL (75-99)
[2018-04-02] MEDS: INSULIN ASPART 100 UNIT/ML 1 ML 10 ML VIAL SQ SCH ×4 (06:16→17:16)
[2018-04-02] MEDS: IPRATROPIUM-ALBUTEROL 3 ML NEB INHALATION SCH ×4 (08:30→19:37)
[2018-04-02] MEDS: SODIUM BICARBONATE TAB 650 MG TAB PO SCH ×2 (08:59→17:16)
[2018-04-02] MEDS: FUROSEMIDE 10 MG/ML 10 ML VIAL IV SCH ×2 (08:59→21:08)
[2018-04-02] MEDS: DILTIAZEM CD 180 MG CAP.ER.24H PO SCH (08:59)
[2018-04-02] MEDS: METOPROLOL SUCCINATE (ER) 50 MG TAB.ER.24H PO SCH ×2 (08:59→21:11)
[2018-04-02] MEDS: APIXABAN 2.5 MG TABLET PO SCH ×2 (08:59→21:08)
[2018-04-02] MEDS: QUEtiapine 100 MG TAB PO SCH ×3 (09:00→21:08)
[2018-04-02] MEDS: cycloSPORINE 0.05% OPHTH 0.4 ML DROPERETTE BOTH EYES SCH ×2 (09:00→21:09)
[2018-04-02] MEDS: ARTIFICIAL TEARS OINTMENT 3.5 GM TUBE BOTH EYES SCH ×3 (09:01→16:41)
[2018-04-02] MEDS: ACETAMINOPHEN TAB 325 MG TAB PO PRN ×3 (09:32→21:08)
[2018-04-02 09:49] LABS: Calcium 9.5 mg/dL (8.4-10.2); Potassium 3.3 mmol/L (3.5-5.1)
[2018-04-02 11:25] LABS: Basophils % (A) 0 %; Eosinophils # (A) 0.3 k/uL (0-0.7); Eosinophils % (A) 2 %; HCT 38.2 % (34.0-46.0); HGB 11.7 gm/dL (11.4-16.0); Lymphocytes % (A) 18 %; MCH 28.1 pg (25.0-35.0); MCHC 30.6 g/dL (31.0-37.0); MCV 91.9 fL (80.0-100.0); Mean Platelet Volume 8.2; Monocytes # (A) 0.7 k/uL (0-1.0); Monocytes % (A) 7 %; Neutrophils # (A) 7.7 k/uL (1.3-7.7); Neutrophils % (A) 71 %; Platelet Count 317 k/uL (150-450); RBC 4.16 m/uL (3.80-5.40); RDW 15.6 % (11.5-15.5); WBC 10.9 k/uL (3.8-10.6)
[2018-04-02 11:30] LABS: Albumin 3.2 g/dL (3.5-5.0); Total Bilirubin 0.5 mg/dL (0.2-1.3); Total Protein 6.1 g/dL (6.3-8.2)
[2018-04-02 11:53] LABS: Glucose,Whole Blood 103 mg/dL (75-99)
--- NOTE | 2018-04-02 11:54 | P.PN ---
Subjective Progress Note Date: 04/02/18 This is a pleasant 73-year-old female was admitted with symptoms of progressive dyspnea. She has a known history of chronic persistent atrial fibrillation, chronic kidney disease. Apparently was at [facility] and at the time often not to undergo any further workup and decided to be no code. Subsequently she changed her mind and was readmitted to the hospital symptoms of dyspnea. She was apparently previously on Coumadin before but cannot recall that she had atrial fibrillation. Echocardiogram with Doppler showed low normal systolic function with an ejection fraction of 50-55% with no significant valvular abnormalities. X-ray done yesterday impression: suspect some improvement in patient's volume status, aeration within the lungs. Basilar effusions. Laboratory values today show slight improvement in renal function with BUN of 87 and creatinine of 4.32 and a potassium of 3.3. She is being followed by nephrology. She is been started on Eliquis 2.5 mg BID. She is currently on metoprolol succinate 50 mg by mouth twice a day. Vital signs are stable, heart rate is well controlled. Objective - Vital Signs Vital signs: Vital Signs Temp 97.6 F 04/02/18 04:00 Pulse 61 04/02/18 08:00 Resp 16 04/02/18 08:00 BP 152/71 04/02/18 08:00 Pulse Ox 91 L 04/02/18 08:00 Intake & Output 04/01/18 04/02/18 04/02/18 18:59 06:59 18:59 Intake Total 240 Output Total 1200 2900 Balance -960 -2900 Weight 116.8 kg Intake: Oral 240 Output: Urine 1200 2900 Uretheral (Alas) 800 Other: Voiding Method Indwelling Catheter Indwelling Catheter Indwelling Catheter - Exam PHYSICAL EXAMINATION: HEENT: Head is atraumatic, normocephalic. Pupils equal, round. Neck is supple. There is no elevated jugular venous pressure. HEART EXAMINATION: Heart sounds irregularly irregular, S1 and S2 with systolic murmur. CHEST EXAMINATION: Lungs reveal improved air entry compared to yesterday. No chest wall tenderness is noted on palpation or with deep breathing. ABDOMEN: Soft, obese, nontender. Bowel sounds are heard. No organomegaly noted. EXTREMITIES: Chronic skin changes with evidence of trace to 1+ peripheral edema and no calf tenderness noted. NEUROLOGIC patient is awake, alert and oriented x3. . - Labs CBC & Chem 7: 04/02/18 09:05 04/02/18 09:05 Labs: Abnormal Lab Results - Last 24 Hours (Table) 04/01/18 04/01/18 04/01/18 Range/Units 12:05 16:44 21:10 WBC (3.8-10.6) k/uL MCHC (31.0-37.0) g/dL RDW (11.5-15.5) % Potassium (3.5-5.1) mmol/L BUN (7-17) mg/dL Creatinine (0.52-1.04) mg/dL POC Glucose (mg/dL) 115 H 115 H 140 H (75-99) mg/dL Total Protein (6.3-8.2) g/dL Albumin (3.5-5.0) g/dL 04/02/18 04/02/18 Range/Units 09:05 09:05 WBC 10.9 H (3.8-10.6) k/uL MCHC 30.6 L (31.0-37.0) g/dL RDW 15.6 H (11.5-15.5) % Potassium 3.3 L (3.5-5.1) mmol/L BUN 87 H (7-17) mg/dL Creatinine 4.32 H (0.52-1.04) mg/dL POC Glucose (mg/dL) (75-99) mg/dL Total Protein 6.1 L (6.3-8.2) g/dL Albumin 3.2 L (3.5-5.0) g/dL Assessment and Plan Assessment: #1 acute on chronic diastolic congestive heart failure #2 chronic kidney disease #3 atrial fibrillation, chronic with RVR, currently with controlled ventricular response Plan: From cardiology perspective, medications were reviewed and will continue the same. Diuretics per nephrology. Continue to follow the patient and provide further recommendations accordingly. GENERAL PURCHASING AGENT note has been reviewed, I agree with a documented findings and plan of care. Patient was seen and examined.
--- NOTE | 2018-04-02 13:07 | PN ---
PROGRESS NOTE CHIEF COMPLAINT: Congestive heart failure, COPD. HISTORY OF PRESENT ILLNESS: This lady is doing much better. Breathing is improved and she is less short of breath. Chest x-ray demonstrates improvement. PHYSICAL EXAM: Breath sounds are much more clear. She is in atrial fibrillation. Abdomen is soft and nontender. IMPRESSION: 1. Congestive heart failure. 2. Chronic obstructive pulmonary disease. 3. Atrial fibrillation. PLAN: Continue with current program and she is improving. Discharge planning is in place. She might be going back to [facility]. MMODL / IJN: [id number] /
[2018-04-02] MEDS: INSULIN DETEMIR 100 UNIT/ML 10 ML VIAL SQ SCH ×2 (14:23→21:11)
--- NOTE | 2018-04-02 14:59 | XR ---
EXAMINATION TYPE: XR chest 2V DATE OF EXAM: 04/02/2018 COMPARISON: 03/31/2018 TECHNIQUE: PA and lateral views submitted. HISTORY: Shortness of breath FINDINGS: Persistent left-sided consolidation small effusion. Tiny right pleural effusion. Interstitium is slig htly improved. Heart size stable. Atherosclerotic change aorta. Arthropathy of the shoulders. No pneu mothorax. IMPRESSION: 1. Mild reduction in the prominence of interstitium suggestive of mild improvement in CHF. Persistent bilateral consolidation and pleural effusion stable.
--- NOTE | 2018-04-02 16:23 | PN ---
PROGRESS NOTE DATE OF SERVICE: 04/02/2018 CHIEF COMPLAINT: Exacerbation of COPD and CHF. HISTORY OF PRESENT ILLNESS: This lady continues to do well. Breathing is greatly improved. Sugars are quite low, however. PHYSICAL EXAMINATION: Chest is quite clear now. Cardiac exam is unchanged. Abdomen is soft and nontender. IMPRESSION: 1. Exacerbation of chronic obstructive pulmonary disease. 2. Congestive heart failure. 3. Hypoglycemia. PLAN: Cut down on long- and short-acting insulin and await discharge arrangements. It looks as though she is going back to [facility], which she can probably do in a day or two. MMODL / IJN: [id number] /
[2018-04-02] MEDS ORDERED: POTASSIUM CHLORIDE ER 20 MEQ TAB.ER PO STA (16:33)
[2018-04-02 16:46] LABS: Glucose,Whole Blood 190 mg/dL (75-99)
--- NOTE | 2018-04-02 17:58 | PN ---
PROGRESS NOTE Patient is seen for followup for chronic kidney disease and acute kidney injury which was mainly cardiorenal. Currently patient is being diuresed. Her renal function has improved and continues to improve slightly. Her creatinine peaked at about 5.0. Patient is maintained on IV Lasix 60 mg q.12 hours. She states she is feeling much better, as she has lost a lot of fluid weight. She denies any chest pains or shortness of breath. Patient has been reluctant to start dialysis as outpatient. We have not seen her in the office for CKD. Initially there were plans for hospice care. However, that was changed and patient requested to be admitted to the hospital. At this time she seems to be improving with IV hydration. I will switch the Lasix to p.o. tomorrow and patient could possibly be discharged tomorrow. She is advised that she will need to follow up as outpatient for CKD and we will need to have another discussion regarding plans for further care down the road. PHYSICAL EXAMINATION: On examination today, patient is comfortable, awake, alert, oriented x3. She is not in any acute distress. Blood pressure is 130/67, heart rate 96 per minute. She is afebrile. EXAMINATION OF THE HEART: S1, S2. EXAMINATION OF LUNGS: Bilateral breath sounds are heard. ABDOMEN: Soft, non-tender. Examination of lower extremities shows improved edema. WIRE TAPER exam is grossly intact. LABS: Labs show sodium 141, potassium 3.3, chloride 104, BUN 87, serum creatinine 4.3, hemoglobin 11.7 g/dL. ASSESSMENT: 1. Acute kidney injury, mainly cardiorenal, currently improved. 2. Hypokalemia secondary to diuretics. Will replace. 3. Chronic kidney disease, most likely secondary to underlying nephrosclerosis and diabetic nephropathy, NKF stage V, with patient currently quite reluctant to start any renal replacement therapy. She has actually not made her final decision yet. Patient is advised at this time she does not need to start dialysis. However, she will need to consider it again in the near future, as she may be hospitalized again for volume overload. 4. Chronic atrial fibrillation, maintained on Eliquis. 5. Hypertension. Blood pressure had been on the lower side. Cardizem was decreased and currently systolic blood pressure is better at 130 mmHg. 6. Non-gap metabolic acidosis secondary to renal failure, maintained on sodium bicarb. PLAN: Change Lasix to p.o. tomorrow. Replace potassium. Patient will need outpatient followup for CKD and further discussion regarding future plans of care, including renal replacement therapy. Patient does not need dialysis at this time. MMODL / IJN: [id number] /
[2018-04-02 20:53] LABS: Glucose,Whole Blood 119 mg/dL (75-99)
[2018-04-02] MEDS: MELATONIN 5 MG TABLET PO SCH (21:08)
[2018-04-02] MEDS ORDERED: ONDANSETRON 4 MG/2 ML VIAL IVP PRN (21:22)
[2018-04-02] MEDS: HYDROcodone/APAP 10-325MG 1 EACH TAB PO PRN (22:46)
[2018-04-03 06:16] LABS: Glucose,Whole Blood 137 mg/dL (75-99)
[2018-04-03 07:51] LABS: Calcium 9.2 mg/dL (8.4-10.2); Potassium 3.6 mmol/L (3.5-5.1)
[2018-04-03] MEDS: FUROSEMIDE 10 MG/ML 10 ML VIAL IV SCH (08:08)
[2018-04-03] MEDS: ARTIFICIAL TEARS OINTMENT 3.5 GM TUBE BOTH EYES SCH ×3 (08:09→17:47)
[2018-04-03] MEDS: SODIUM BICARBONATE TAB 650 MG TAB PO SCH ×2 (08:10→10:34)
[2018-04-03] MEDS: DILTIAZEM CD 180 MG CAP.ER.24H PO SCH (08:10)
[2018-04-03] MEDS: APIXABAN 2.5 MG TABLET PO SCH ×2 (08:10→20:00)
[2018-04-03] MEDS: METOPROLOL SUCCINATE (ER) 50 MG TAB.ER.24H PO SCH ×2 (08:10→19:59)
[2018-04-03] MEDS: HYDROcodone/APAP 10-325MG 1 EACH TAB PO PRN ×2 (08:10→20:00)
[2018-04-03] MEDS: INSULIN ASPART 100 UNIT/ML 1 ML 10 ML VIAL SQ SCH ×3 (08:10→17:47)
[2018-04-03] MEDS: QUEtiapine 100 MG TAB PO SCH ×3 (08:24→20:02)
[2018-04-03] MEDS: cycloSPORINE 0.05% OPHTH 0.4 ML DROPERETTE BOTH EYES SCH ×2 (08:24→20:02)
--- NOTE | 2018-04-03 08:39 | P.PN ---
Subjective Patient is seen in follow-up for acute kidney injury on chronic kidney disease. Patient has history of chronic kidney disease stage IV secondary to diabetic kidney disease and nephrosclerosis. She is also noted to have diastolic CHF and is maintained on Lasix 60 mg IV twice daily. She is nonoliguric. Edema has improved. She denies any chest pain or shortness of breath at this time. Oral intake is good. Vital signs are stable. General: The patient appeared well nourished and normally developed. HEENT: Head exam is unremarkable. Neck is without jugular venous distension. LUNGS: Lungs are clear to auscultation and percussion. Breath sounds decreased. HEART: Rate and Rhythm are regular. First and second heart sounds normal. No murmurs, rubs or gallops. ABDOMEN: Abdominal exam reveals normal bowel sounds. Non-tender and non- distended. No evidence of peritonitis. EXTREMITITES: Trace edema. Objective - Vital Signs Vital signs: Vital Signs Temp 97.9 F 04/03/18 04:00 Pulse 70 04/03/18 04:00 Resp 18 04/03/18 04:00 BP 137/79 04/03/18 04:00 Pulse Ox 93 L 04/03/18 04:00 Intake & Output 04/02/18 04/03/18 04/03/18 18:59 06:59 18:59 Intake Total 120 Output Total 1600 1000 Balance -1480 -1000 Weight 117 kg Intake: Oral 120 Output: Urine 1600 1000 Other: Voiding Method Indwelling Catheter Indwelling Catheter # Voids 1 # Bowel Movements 1 - Labs CBC & Chem 7: 04/02/18 09:05 04/03/18 06:57 Labs: Abnormal Lab Results - Last 24 Hours (Table) 04/02/18 04/02/18 04/02/18 Range/Units 09:05 09:05 11:33 WBC 10.9 H (3.8-10.6) k/uL MCHC 30.6 L (31.0-37.0) g/dL RDW 15.6 H (11.5-15.5) % Potassium 3.3 L (3.5-5.1) mmol/L BUN 87 H (7-17) mg/dL Creatinine 4.32 H (0.52-1.04) mg/dL Glucose (74-99) mg/dL POC Glucose (mg/dL) 103 H (75-99) mg/dL Total Protein 6.1 L (6.3-8.2) g/dL Albumin 3.2 L (3.5-5.0) g/dL 04/02/18 04/02/18 04/03/18 Range/Units 16:44 20:51 06:14 WBC (3.8-10.6) k/uL MCHC (31.0-37.0) g/dL RDW (11.5-15.5) % Potassium (3.5-5.1) mmol/L BUN (7-17) mg/dL Creatinine (0.52-1.04) mg/dL Glucose (74-99) mg/dL POC Glucose (mg/dL) 190 H 119 H 137 H (75-99) mg/dL Total Protein (6.3-8.2) g/dL Albumin (3.5-5.0) g/dL 04/03/18 Range/Units 06:57 WBC (3.8-10.6) k/uL MCHC (31.0-37.0) g/dL RDW (11.5-15.5) % Potassium (3.5-5.1) mmol/L BUN 83 H (7-17) mg/dL Creatinine 4.25 H (0.52-1.04) mg/dL Glucose 137 H (74-99) mg/dL POC Glucose (mg/dL) (75-99) mg/dL Total Protein (6.3-8.2) g/dL Albumin (3.5-5.0) g/dL Microbiology - Last 24 Hours (Table) 04/01/18 17:36 Urine Culture - Preliminary Urine,Catheterized Assessment and Plan Plan: Assessment: 1. Nonoliguric acute kidney injury secondary to ATN secondary to cardiorenal syndrome. Renal function is relatively stable with creatinine at 4.5 today. 2. Chronic kidney disease stage V secondary to diabetic kidney disease and nephrosclerosis. Patient has been reluctant to start renal replacement therapy. At this point she is willing to follow up outpatient and will consider it if absolutely indicated. 3. Diastolic CHF. 4. Volume overload. Improved. 5. Hypokalemia secondary to diuresis. Improved post replacement. 6. Hypertension with chronic kidney disease. Controlled. 7. Metabolic acidosis secondary to acute kidney injury. Improved. Plan: I will change Lasix to 40 mg orally twice a day. Add 20 mEq of potassium supplementation daily. Decrease sodium bicarbonate once daily. Patient will need to follow up outpatient in the next 1-2 weeks. No urgency for renal replacement therapy at this time.
[2018-04-03] MEDS: IPRATROPIUM-ALBUTEROL 3 ML NEB INHALATION SCH ×4 (09:01→20:30)
[2018-04-03] MEDS: FUROSEMIDE 40 MG TAB PO SCH ×2 (10:33→16:09)
[2018-04-03 10:49] VITALS: BMI 41.6
[2018-04-03 10:53] LABS: Glucose,Whole Blood 135 mg/dL (75-99)
[2018-04-03] MEDS: POTASSIUM CHLORIDE ER 20 MEQ TAB.ER PO SCH (11:01)
--- NOTE | 2018-04-03 11:03 | P.PN ---
Subjective Progress Note Date: 04/03/18 This is a pleasant 73-year-old female was admitted with symptoms of progressive dyspnea. She has a known history of chronic persistent atrial fibrillation, chronic kidney disease. Apparently was at [facility] and at the time often not to undergo any further workup and decided to be no code. Subsequently she changed her mind and was readmitted to the hospital symptoms of dyspnea. She was apparently previously on Coumadin before but cannot recall that she had atrial fibrillation. Echocardiogram with Doppler showed low normal systolic function with an ejection fraction of 50-55% with no significant valvular abnormalities. X-ray done yesterday impression: suspect some improvement in patient's volume status, aeration within the lungs. Basilar effusions. Laboratory values today show slight improvement in renal function with BUN of 83 and creatinine of 4.25 and a potassium of 3.8. She is being followed by nephrology. She has been started on Eliquis 2.5 mg BID. She is currently on metoprolol succinate 50 mg by mouth twice a day. Vital signs are stable, heart rate is well controlled. She is anticipating discharge today. Objective - Vital Signs Vital signs: Vital Signs Temp 98.2 F 04/03/18 08:00 Pulse 60 04/03/18 09:13 Resp 18 04/03/18 08:00 BP 125/62 04/03/18 08:00 Pulse Ox 94 L 04/03/18 08:00 Intake & Output 04/02/18 04/03/18 04/03/18 18:59 06:59 18:59 Intake Total 120 0 Output Total 1600 1000 200 Balance -1480 -1000 -200 Weight 117 kg 117 kg Intake: Oral 120 0 Output: Urine 1600 1000 200 Other: Voiding Method Indwelling Catheter Indwelling Catheter Indwelling Catheter # Voids 1 # Bowel Movements 1 - Exam PHYSICAL EXAMINATION: HEENT: Head is atraumatic, normocephalic. Pupils equal, round. Neck is supple. There is no elevated jugular venous pressure. HEART EXAMINATION: Heart sounds irregularly irregular, S1 and S2 with systolic murmur. CHEST EXAMINATION: Lungs clear to auscultate bilaterally. No chest wall tenderness is noted on palpation or with deep breathing. ABDOMEN: Soft, obese, nontender. Bowel sounds are heard. No organomegaly noted. EXTREMITIES: Chronic skin changes with evidence of trace to 1+ peripheral edema and no calf tenderness noted. NEUROLOGIC patient is awake, alert and oriented x3. . - Labs CBC & Chem 7: 04/02/18 09:05 04/03/18 06:57 Labs: Abnormal Lab Results - Last 24 Hours (Table) 04/02/18 04/02/18 04/02/18 Range/Units 09:05 09:05 11:33 WBC 10.9 H (3.8-10.6) k/uL MCHC 30.6 L (31.0-37.0) g/dL RDW 15.6 H (11.5-15.5) % BUN (7-17) mg/dL Creatinine (0.52-1.04) mg/dL Glucose (74-99) mg/dL POC Glucose (mg/dL) 103 H (75-99) mg/dL Total Protein 6.1 L (6.3-8.2) g/dL Albumin 3.2 L (3.5-5.0) g/dL 04/02/18 04/02/18 04/03/18 Range/Units 16:44 20:51 06:14 WBC (3.8-10.6) k/uL MCHC (31.0-37.0) g/dL RDW (11.5-15.5) % BUN (7-17) mg/dL Creatinine (0.52-1.04) mg/dL Glucose (74-99) mg/dL POC Glucose (mg/dL) 190 H 119 H 137 H (75-99) mg/dL Total Protein (6.3-8.2) g/dL Albumin (3.5-5.0) g/dL 04/03/18 04/03/18 Range/Units 06:57 10:51 WBC (3.8-10.6) k/uL MCHC (31.0-37.0) g/dL RDW (11.5-15.5) % BUN 83 H (7-17) mg/dL Creatinine 4.25 H (0.52-1.04) mg/dL Glucose 137 H (74-99) mg/dL POC Glucose (mg/dL) 135 H (75-99) mg/dL Total Protein (6.3-8.2) g/dL Albumin (3.5-5.0) g/dL Microbiology - Last 24 Hours (Table) 04/01/18 17:36 Urine Culture - Preliminary Urine,Catheterized Assessment and Plan Assessment: #1 acute on chronic diastolic congestive heart failure #2 chronic kidney disease #3 atrial fibrillation, chronic with RVR, currently with controlled ventricular response Plan: From cardiology perspective, medications were reviewed and will continue the same. Diuretics per nephrology. Patient will follow-up in the office with Dr. Kilpatrick as an outpatient. 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 Patient was seen and examined.
[2018-04-03] MEDS ORDERED: LEVOFLOXACIN 500MG-D5W PMX 500 MG in DEXTROSE/WATER 1 100ML.BAG IVPB SCH (12:00)
[2018-04-03 16:41] LABS: Glucose,Whole Blood 169 mg/dL (75-99)
--- NOTE | 2018-04-03 18:12 | P.PN ---
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 DM, HLP, HTN, Memory impairment, osteoarthritis, wheelchair dependant, CKD, chronic abernathy catheter and recurrent UTI, neuropathy who presents because dyspnea and not feeling well . pt was evaluated by cardiology team and found to have acute diastolic CHF , she is been treated with diuretic and she is improving and her breathing improved .pt has some cough. also she is complaining from increased frequency of urination. but no dysurea. she is also on norco and levemir 20 U and eliquis 2.5 mg. pt is also been evaluated for her kidney disease with nephrology team are following the pt .pt today is feeling better however she is developing leukocytosis mostly related to her UTI , pneumonia is possible but less likely . pt is stated on levaquin . her UC is pending Objective - Vital Signs Vital signs: Vital Signs Temp 97.9 F 04/03/18 16:00 Pulse 60 04/03/18 16:27 Resp 20 04/03/18 16:00 BP 113/63 04/03/18 16:00 Pulse Ox 96 04/03/18 16:00 Intake & Output 04/02/18 04/03/18 04/03/18 18:59 06:59 18:59 Intake Total 120 240 Output Total 1600 1000 1100 Balance -1480 -1000 -860 Weight 117 kg 117 kg Intake: Oral 120 240 Output: Urine 1600 1000 1100 Other: Voiding Method Indwelling Catheter Indwelling Catheter Indwelling Catheter # Voids 1 # Bowel Movements 1 - Labs CBC & Chem 7: 04/02/18 09:05 04/03/18 06:57 Labs: Abnormal Lab Results - Last 24 Hours (Table) 04/02/18 04/03/18 04/03/18 Range/Units 20:51 06:14 06:57 BUN 83 H (7-17) mg/dL Creatinine 4.25 H (0.52-1.04) mg/dL Glucose 137 H (74-99) mg/dL POC Glucose (mg/dL) 119 H 137 H (75-99) mg/dL 04/03/18 04/03/18 Range/Units 10:51 16:39 BUN (7-17) mg/dL Creatinine (0.52-1.04) mg/dL Glucose (74-99) mg/dL POC Glucose (mg/dL) 135 H 169 H (75-99) mg/dL Microbiology - Last 24 Hours (Table) 04/01/18 17:36 Urine Culture - Preliminary Urine,Catheterized Assessment and Plan Plan: this is a pleasant 73 yo F who present with diastolic CHF and UTI. pt is started on antibiotic, f/u culture result. c/w diuretic . continue with the same treatment , continue with symptomatic treatment , resume home medication , monitor lytes and vitals including glucose cardiology consult is appreciated. nephrology consult is appreciated . c/w same antibioitc . GI and DVT prophylaxis , further recommendation based upon pt clinical course and progress DVT prophylaxis eliquis GI prophylaxis Pepcid Prognosis is guarded
[2018-04-03] MEDS: MELATONIN 5 MG TABLET PO SCH (19:59)
[2018-04-03 20:35] LABS: Glucose,Whole Blood 137 mg/dL (75-99)
[2018-04-03] MEDS: INSULIN DETEMIR 100 UNIT/ML 10 ML VIAL SQ SCH (21:44)
[2018-04-03 22:09] VITALS: TEMP 97.8
[2018-04-04] MEDS: HYDROcodone/APAP 10-325MG 1 EACH TAB PO PRN ×2 (04:37→13:29)
[2018-04-04 05:39] LABS: Glucose,Whole Blood 130 mg/dL (75-99)
[2018-04-04 07:02] LABS: Potassium 3.5 mmol/L (3.5-5.1)
[2018-04-04] MEDS: ARTIFICIAL TEARS OINTMENT 3.5 GM TUBE BOTH EYES SCH ×2 (07:53→11:48)
[2018-04-04] MEDS: INSULIN ASPART 100 UNIT/ML 1 ML 10 ML VIAL SQ SCH ×2 (07:53→12:06)
[2018-04-04] MEDS: QUEtiapine 100 MG TAB PO SCH ×2 (07:53→13:16)
[2018-04-04] MEDS: DILTIAZEM CD 180 MG CAP.ER.24H PO SCH (07:54)
[2018-04-04] MEDS: SODIUM BICARBONATE TAB 650 MG TAB PO SCH (07:54)
[2018-04-04] MEDS: APIXABAN 2.5 MG TABLET PO SCH (07:54)
[2018-04-04] MEDS: FUROSEMIDE 40 MG TAB PO SCH (07:54)
[2018-04-04] MEDS: cycloSPORINE 0.05% OPHTH 0.4 ML DROPERETTE BOTH EYES SCH (07:54)
[2018-04-04] MEDS: METOPROLOL SUCCINATE (ER) 50 MG TAB.ER.24H PO SCH (08:05)
[2018-04-04] MEDS: POTASSIUM CHLORIDE ER 20 MEQ TAB.ER PO SCH (08:05)
[2018-04-04] MEDS: IPRATROPIUM-ALBUTEROL 3 ML NEB INHALATION SCH ×2 (08:53→12:01)
--- NOTE | 2018-04-04 09:16 | P.PN ---
Subjective Progress Note Date: 04/04/18 Principal diagnosis: This is a 73-year-old female, known with chronic kidney disease, admitted with shortness of breath and edema. She states she lost 20 pounds and since getting much better. Supposedly she was recently admitted to an outside hospital with pneumonia, and liver disease hospital probably and stayed there for 11 days and was discharged about 5 days prior to admission here, she was discharged to custodial of [facility]. This morning she says she is feeling much better has no cough shortness of breath. She is weak and able to walk with help. No dizziness. No fever chills no nausea vomiting appetite is good. There are no recent creatinines available prior to this admission but in 2010, her creatinine was supposedly 2.7 She is known with diabetes atrial fibrillation, obesity Objective - Vital Signs Vital signs: Vital Signs Temp 97.8 F 04/04/18 07:45 Pulse 80 04/04/18 07:45 Resp 20 04/04/18 07:45 BP 121/60 04/04/18 07:45 Pulse Ox 97 04/04/18 07:45 Intake & Output 04/03/18 04/04/18 04/04/18 18:59 06:59 18:59 Intake Total 640 Output Total 1100 2000 500 Balance -460 -1999 -500 Weight 117 kg 117 kg Intake: Oral 640 Output: Urine 1100 2000 500 Uretheral (Alas) 1000 500 Other: Voiding Method Indwelling Catheter Indwelling Catheter Indwelling Catheter On examination is awake alert oriented comfortable HEENT exam no JVP neck is supple no facial asymmetry Lungs are clear to auscultation good air entry bilaterally Heart sounds are unremarkable for any murmur rub gallop Abdomen soft nontender No organomegaly ascites masses Somewhat pendulous and abdomen Extremity exam was trace edema with some chronic course thickened skin. Neurologically awake alert oriented. - Labs CBC & Chem 7: 04/02/18 09:05 04/04/18 06:29 Labs: Abnormal Lab Results - Last 24 Hours (Table) 04/03/18 04/03/18 04/03/18 Range/Units 10:51 16:39 20:33 BUN (7-17) mg/dL Creatinine (0.52-1.04) mg/dL Glucose (74-99) mg/dL POC Glucose (mg/dL) 135 H 169 H 137 H (75-99) mg/dL 04/04/18 04/04/18 Range/Units 05:37 06:29 BUN 85 H (7-17) mg/dL Creatinine 4.37 H (0.52-1.04) mg/dL Glucose 147 H (74-99) mg/dL POC Glucose (mg/dL) 130 H (75-99) mg/dL Microbiology - Last 24 Hours (Table) 04/01/18 17:36 Urine Culture - Final Urine,Catheterized Assessment and Plan Assessment: Impression 1. Chronic kidney disease, stage IV possibly, etiology is likely nephrosclerosis baseline creatinine unclear possibly 2.7 in 2010 2. Acute kidney injury possibly secondary to recent pneumonia and volume overloaded with response to diuresis with loss of significant edema. Creatinine stable to 4.37 as of this morning. 3. Recent admission to [facility] with pneumonia supposedly discharged 5 days prior to admission here 4. Anemia of chronic kidney disease hemoglobin 11.7 at target dated 04/02/2018 , iron saturation 25%. 5. Atrial fibrillation controlled ventricular response. 6. Blood pressure at target. Recommendation 1. Patient discharged in current medications. 2. Check orthostatic changes to ensure there is no volume depletion. 3. Patient may be discharged but he will need to be closely followed up in the office as she is nearing end-stage renal failure 4. Patient was advised that the need for close follow-up.
[2018-04-04 11:03] LABS: Glucose,Whole Blood 201 mg/dL (75-99)
[2018-04-04 11:12] LABS: Basophils % (A) 0 %; Eosinophils # (A) 0.4 k/uL (0-0.7); Eosinophils % (A) 4 %; HCT 34.8 % (34.0-46.0); Hypochromasia Slight; Lymphocytes # (A) 2.2 k/uL (1.0-4.8); Lymphocytes % (A) 27 %; MCH 29.4 pg (25.0-35.0); MCHC 31.6 g/dL (31.0-37.0); MCV 93.2 fL (80.0-100.0); Mean Platelet Volume 8.9; Monocytes # (A) 0.5 k/uL (0-1.0); Monocytes % (A) 7 %; Neutrophils # (A) 5.1 k/uL (1.3-7.7); Neutrophils % (A) 61 %; Platelet Count 254 k/uL (150-450); RBC 3.73 m/uL (3.80-5.40); RDW 15.5 % (11.5-15.5); WBC 8.4 k/uL (3.8-10.6)
[2018-04-04 12:02] VITALS: RESP 16
--- NOTE | 2018-04-04 12:48 | P.DS ---
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 DM, HLP, HTN, Memory impairment, osteoarthritis, wheelchair dependant, CKD, chronic abernathy catheter and recurrent UTI, neuropathy who presents because dyspnea and not feeling well . pt was evaluated by cardiology team and found to have acute diastolic CHF , she is been treated with diuretic and she is improving and her breathing improved .pt has some cough. also she is complaining from increased frequency of urination. but no dysurea. Patient received antibiotics for UTI, the day of discharge patient denies urinary signs or symptoms and she is back to baseline. she is also on norco and levemir 20 U and eliquis 2.5 mg. pt is also been evaluated for her kidney disease with nephrology team are following the pt .pt today is feeling better and her leukocytosis mostly related to her UTI has resolved to normal , pneumonia is possible but less likely, patient had an mild cough,other than that she denies chest pain or dyspnea and her respiratory symptoms are significantly improved. her UC showed no growth. At the hospital patient tolerated [place] 10-325 mg twice a day, we are going to discharge the patient on [place] 5-325 mg for 2 more days, and discontinue her Xanax. Continue with Tylenol when necessary Patient has been evaluated by cardiology and nephrology services in the hospital and both cleared the patient for discharge today. Problems and management plan was discussed with the patient and she verbalized understanding and acceptance. Patient is found stable and can be discharged to rehab however she needs follow-up as an outpatient. Appointments has been made with the cardiology and nephrology services and patient made aware of them and she agrees. physical exam Gen.: Patient alert awake and oriented X 3, NOT IN DISTRESS CVS: s1-s2, RRR, no murmur CHEST:bilateral CTA, no wheezing or crepitation Abdomen: Soft, no tenderness, no distention, positive bowel sounds Extremities: No leg edema or induration Time spent more than 35 minutes Patient Condition at Discharge: Serious Plan - Discharge Summary Discharge Rx Participant: No New Discharge Prescriptions: New Acetaminophen Tab [Tylenol] 325 mg PO Q6HR PRN tab PRN Reason: Fever and/ or MILD Pain Apixaban [Eliquis] 2.5 mg PO BID tablet Furosemide [Lasix] 40 mg PO BID@0900,1600 tab HYDROcodone/APAP 5-325MG [[place] 5-325] 1 tab PO Q12HR PRN 2 Days #4 tab PRN Reason: Pain Control Insulin Aspart [NovoLOG (formulary)] 8 unit SQ AC-TID vial Insulin Detemir [Levemir] 20 unit SQ HS syr Metoprolol Succinate (ER) [Toprol XL] 50 mg PO BID tab.er.24h Potassium Chloride ER [K-Dur 20] 20 meq PO DAILY tab.er.prt Continue Clopidogrel [Plavix] 75 mg PO DAILY Menthol [Biofreeze] 1 applic TOPICAL DAILY PRN PRN Reason: Pain Magnesium Hydroxide [Milk of Magnesia] 30 ml PO DAILY PRN PRN Reason: Constipation Nitroglycerin Sl Tabs [Nitrostat] 0.4 mg SL Q5M Menthol [Biofreeze] 1 dose TOPICAL Q8HR PRN MDD BOTH KNEES PRN Reason: Pain Insulin Aspart [NovoLOG] See Protocol SQ DIRECTED Ipratropium-Albuterol Nebulize [Duoneb 0.5 mg-3 mg/3 ml Soln] 3 ml INHALATION RT-QID QUEtiapine [SEROquel] 100 mg PO TID@0800,1200,2100 Carboxymethylcellulose Sodium [Refresh Tears] 1 drop BOTH EYES TID@0800,1200, 1800 Insulin Aspart [NovoLOG] 35 unit SQ AC-TID Sodium Bicarbonate 650 mg PO BID@0800,1600 cycloSPORINE 0.05% OPHTH SOLN [Restasis] 1 drop BOTH EYES BID Melatonin 5 mg PO HS Lidocaine [Lidocaine 3% Topical Cream] 1 applic TOPICAL DAILY Diltiazem HCl [Cardizem LA] 180 mg PO DAILY guaiFENesin SYRUP 100MG/5ML [Robitussin] 5 ml PO Q6HR PRN PRN Reason: Cough Discontinued ALPRAZolam [Xanax] 0.25 mg PO BID@0800,1600 Metoprolol Succinate (ER) [Toprol Xl] 100 mg PO DAILY HYDROcodone/APAP 10-325MG [[place] 10-325] 1 tab PO Q4H metFORMIN HCL 1,000 mg PO BID@0800,1600 Insulin Glargine,Hum.rec.anlog [Basaglar Kwikpen U-100] 50 unit SQ BID@0800, 1600 Ketoconazole [Ketoconazole 2%] 1 applic TOPICAL DAILY Discharge Medication List Clopidogrel [Plavix] 75 mg PO DAILY 08/17/15 [History] Magnesium Hydroxide [Milk of Magnesia] 30 ml PO DAILY PRN 08/17/15 [History] Menthol [Biofreeze] 1 applic TOPICAL DAILY PRN 08/17/15 [History] Carboxymethylcellulose Sodium [Refresh Tears] 1 drop BOTH EYES TID@0800,1200, 1800 03/29/18 [History] Diltiazem HCl [Cardizem LA] 180 mg PO DAILY 03/29/18 [History] Insulin Aspart [NovoLOG] 35 unit SQ AC-TID 03/29/18 [History] Insulin Aspart [NovoLOG] See Protocol SQ DIRECTED 03/29/18 [History] Ipratropium-Albuterol Nebulize [Duoneb 0.5 mg-3 mg/3 ml Soln] 3 ml INHALATION RT -QID 03/29/18 [History] Lidocaine [Lidocaine 3% Topical Cream] 1 applic TOPICAL DAILY 03/29/18 [History] Melatonin 5 mg PO HS 03/29/18 [History] Menthol [Biofreeze] 1 dose TOPICAL Q8HR PRN MDD BOTH KNEES 03/29/18 [History] Nitroglycerin Sl Tabs [Nitrostat] 0.4 mg SL Q5M 03/29/18 [History] QUEtiapine [SEROquel] 100 mg PO TID@0800,1200,2100 03/29/18 [History] Sodium Bicarbonate 650 mg PO BID@0800,1600 03/29/18 [History] cycloSPORINE 0.05% OPHTH SOLN [Restasis] 1 drop BOTH EYES BID 03/29/18 [History] guaiFENesin SYRUP 100MG/5ML [Robitussin] 5 ml PO Q6HR PRN 03/29/18 [History] Acetaminophen Tab [Tylenol] 325 mg PO Q6HR PRN tab 04/04/18 [Rx] Apixaban [Eliquis] 2.5 mg PO BID tablet 04/04/18 [Rx] Furosemide [Lasix] 40 mg PO BID@0900,1600 tab 04/04/18 [Rx] HYDROcodone/APAP 5-325MG [[place] 5-325] 1 tab PO Q12HR PRN 2 Days #4 tab [Rx] Insulin Aspart [NovoLOG (formulary)] 8 unit SQ AC-TID vial 04/04/18 [Rx] Insulin Detemir [Levemir] 20 unit SQ HS syr 04/04/18 [Rx] Metoprolol Succinate (ER) [Toprol XL] 50 mg PO BID tab.er.24h 04/04/18 [Rx] Potassium Chloride ER [K-Dur 20] 20 meq PO DAILY tab.er.prt 04/04/18 [Rx] Follow up Appointment(s)/Referral(s): Berto Valle MD [Primary Care Provider] - 1-2 days (Patient resides at [facility], office will not make follow up appointment. Patient will see physician at [facility].) Lala Pedraza MD [STAFF PHYSICIAN] - 05/06/18 10:20 am Aryan Kilpatrick MD [STAFF PHYSICIAN] - 04/20/18 2:45 pm Patient Instructions/Handouts: Heart Failure (DC), Pulmonary Edema (DC), Heart Healthy Diet (DC) Activity/Diet/Wound Care/Special Instructions: [facility] on D/C Care Plan Goals (MU): Patient to discharge and per Dr. Ely have the catheter removed after discharge and do a trial void. It is up to the primary at the [facility] when the patient will do the trial void. Discharge Disposition: TRANSFER TO SNF/ECF
[2018-04-04 12:56] VITALS: BP 118/57; PULSE 96
[2018-04-04] MEDS ORDERED: LEVOFLOXACIN 250 MG TAB PO SCH (16:00)
--- NOTE | 2018-04-07 15:16 | CDI ---
Last Revision, April 2017 Documentation Clarification Form Date: 04/07/2018 2:15:00 PM From: Ellen Bray Ana Rosa Hansen, Yoker Machine Operator Hours-8:30 am & 5 pm [email or web address] Admit Date: 03/29/2018 2:55:00 PM Patient Name: Ellen Beaulieu Visit Number: [id number] Discharge Date: 04/04/18 ATTENTION: The Clinical Documentation Specialists (CDI) and [facility] Coding Staff appreciate your assistance in clarifying documentation. Please respond to the clarification below the line at the bottom and electronically sign. The CDI & [facility] Coding staff will review the response and follow-up if needed. Please note: Queries are made part of the Legal Health Record. If you have any questions, please contact the author of this message via ITS. Berto Jordan MD A diagnosis of UTI has been documented in the 04/03 PN and DS. History/Risk factors: CHF, HTN, CKD Stage 4, ATN, AECOPD, DM w nephropathy and neuropathy Per documentation in the DS this patient was admitted with an indwelling Alas catheter and was treated for a UTI. Clinical Indicators: Urinalysis: 1+ Protein, Trace of blood, Ur Leukocyte Esterase-large, WBC-50, bacteria -rare Urine culture: No growth Treatment: Levaquin started 04/03 In your professional opinion, can you please clarify the etiology of the UTI, if known and if present on admission? UTI ruled out Alas catheter UTI not related to catheter/urostomy Other condition, please specify Unable to determine Present on Admission Yes No Unknown Clinically undetermined Please continue to document in your progress notes and discharge summary in order to capture severity of illness and risk of mortality. Include clinical findings that support your diagnosis. MTDD
--- NOTE | 2018-04-07 20:34 | DS ---
DISCHARGE SUMMARY CHIEF COMPLAINT: Shortness of breath. HISTORY OF PRESENT ILLNESS AND PHYSICAL EXAM: The details of this lady's history and physical can be found in the initial workup. LABORATORY STUDIES: While she was in a hospital she had laboratory studies, details of which can be found in the laboratory section of her chart. COURSE IN HOSPITAL: After admission she was placed on bedrest, started on intravenous fluids and started on diuretic management as well as updrafts. Chest cleared and she improved dramatically. It was felt she could be discharged on the tenth and she will be going back to [facility]. FINAL DIAGNOSES: 1. Exacerbation of congestive heart failure. 2. Dementia. OPERATIONS: None. CONSULTATIONS: None. She is improved. MMODL / IJN: [id number] /
--- NOTE | 2018-04-10 09:37 | MISC ---
MISCELLANOUS REPORT Etiology of urinary tract infection, poor bladder support. Present on admission, Yes. MMODL / IJN: [id number] /
== END 2018-04-04 14:27 | DRG 291 ==
LOC: EC 12:16 → 3SCARD 14:55
PROVIDERS: ADMIT Family Medicine; ATTEND Family Medicine
DX: I13.0 Hypertensive heart and chronic kidney disease with heart failure and stage 1 through stage 4 chronic kidney disease, or unspecified chronic kidney disease (principal); I50.33 Acute on chronic diastolic (congestive) heart failure; N17.0 Acute kidney failure with tubular necrosis; N18.4 Chronic kidney disease, stage 4 (severe); Z68.41 Body mass index [BMI] 40.0-44.9, adult; E87.2 Acidosis; J44.1 Chronic obstructive pulmonary disease with (acute) exacerbation; N39.0 Urinary tract infection, site not specified; E11.22 Type 2 diabetes mellitus with diabetic chronic kidney disease; E66.9 Obesity, unspecified; E11.40 Type 2 diabetes mellitus with diabetic neuropathy, unspecified; E11.649 Type 2 diabetes mellitus with hypoglycemia without coma; I48.2 Chronic atrial fibrillation; D63.1 Anemia in chronic kidney disease; E78.5 Hyperlipidemia, unspecified; E87.6 Hypokalemia; F03.90 Unspecified dementia, unspecified severity, without behavioral disturbance, psychotic disturbance, mood disturbance, and anxiety; F17.200 Nicotine dependence, unspecified, uncomplicated; M19.91 Primary osteoarthritis, unspecified site; R09.02 Hypoxemia; K76.9 Liver disease, unspecified; H57.9 Unspecified disorder of eye and adnexa; T50.2X5A Adverse effect of carbonic-anhydrase inhibitors, benzothiadiazides and other diuretics, initial encounter; Z79.02 Long term (current) use of antithrombotics/antiplatelets; Z79.4 Long term (current) use of insulin; Z79.891 Long term (current) use of opiate analgesic; Z79.899 Other long term (current) drug therapy; Z87.01 Personal history of pneumonia (recurrent); Z86.73 Personal history of transient ischemic attack (TIA), and cerebral infarction without residual deficits; Z87.440 Personal history of urinary (tract) infections; Z99.3 Dependence on wheelchair; Z88.5 Allergy status to narcotic agent; Z88.8 Allergy status to other drugs, medicaments and biological substances
CPT/HCPCS: 36415; 71046; 76770; 80048; 80053; 81001; 82550; 82553; 83036; 83540; 83550; 83735; 83880; 84100; 84439; 84443; 84484; 85025; 85027; 85610; 85730; 87086; 93005; 93306; 94640; 94760; 96365; 96366; 96375; 96376; 99291